=== PATIENT | male | born 1955 | race American Indian/Alaskan Native ===

== ENCOUNTER 2016-06-21 19:25 | Inpatient (IN) | payer OTHER ==
[2016-06-21] MEDS ORDERED: NACL 0.9% 1000 ML 1,000 ML IV ONE (19:47)
--- NOTE | 2016-06-21 20:15 | Cat Scan Report ---
FINAL REPORT PROCEDURE: CT HEAD/BRAIN WO CON TECHNIQUE: Computerized tomography of the head was performed without contrast material. HISTORY: AMS COMPARISON: No prior studies are available for comparison. FINDINGS: Skull and scalp: Normal. Paranasal sinuses: Moderate mucosal thickening and fluid.. Ventricles and subarachnoid spaces: Normal. Cerebrum: No evidence of hemorrhage, acute infarction or mass. Basal ganglia calcifications. Cerebellum and brainstem: No evidence of hemorrhage, acute infarction or mass. Vasculature: Normal. Comments: None. IMPRESSION: No acute intracranial abnormality.
[2016-06-21 20:38] LABS: Basophils % (Auto) 0.4 % (0.0-1.8); Eosinophils % (Auto) 2.4 % (0.0-4.3); Hematocrit 48.9 % (35.5-45.6); Hemoglobin 16.1 gm/dl (11.8-15.2); Mean Corpuscular HGB Conc 33 % (32-34); Mean Corpuscular Hemoglobin 30 pg (28-32); Mean Corpuscular Volume 90 fl (84-94); Platelet Count 223 K/mm3 (140-440); Red Blood Count 5.44 M/mm3 (3.65-5.03); Red Cell Distribution Width 12.8 % (13.2-15.2)
[2016-06-21 20:48] LABS: Partial Thromboplastin Time 29.8 Sec. (24.2-36.6)
--- NOTE | 2016-06-21 21:02 | Admit Criteria Form ---
<GABRIELLA KENDRICK - Last Filed: 06/21/16 21:02> Admission Criteria Documentation: MENTAL STATUS CHANGE Clinical Indications for Inpatient Care (Place 'X' for any and all applicable criteria): Ongoing inpatient care may be needed for 1 or more of the following(1)(2)(3)(5)( 6): [ ]I. Suspected serious etiology (eg, medical disorder, [employer] event) of altered mental status [ ]II. Danger to self or others not manageable at lower level of care [ ]III. Grave disability (eg, inability to perform self care necessary at lower level of care) [ ]IV. Agitation or inappropriate behavior interfering with care for primary condition (eg, attempting to discontinue lines or drains prematurely, unable to cooperate with respiratory care) [ ]V. Delirium [A] [D][E] as described by 1 or more of the following(26): [ ]a) Delirium due to alcohol or sedative [F] withdrawal [ ]b) Delirium of uncertain etiology that has not responded to appropriate empiric treatment [ ]c) Delirium that prevents performance of a life-sustaining function (eg, feeding or hydrating oneself) [X ]. General contraindications and/or Inappropriate clinical situations for Observational Care in patients with Mental Status Change, when ANY ONE of the following is required: [ X]a) Prediction of prolongation of LOS based on ANY ONE of the following may be considered as a contraindication for observational care 2, 3, 4, 5, 6, 7, 8, 9, 10, 11 [ ]i) Age > 65 yrs. [X]ii) Patient arriving by ambulance [ ]iii) Patient with high acuity [ ]iv) Patient requiring vital sign monitoring [ ]v) Patient on IV medication [ ]b) Systolic blood pressures greater than or equal to 180mmHg 3, 12 [ ]c) Patient with altered mental status including delirium and other alteration of consciousness, (3) [ ]d) Patient whose discharge disposition will be to a assisted home or rehabilitation home should not be managed in Emergency Department Observation Unit. CMS rule requires 3 days hospital stay before such placement.3,13 [ ]e) Patient with failure to thrive due to broad array of etiologies 3,16,17 [ ]f) Inability to ambulate 3,14 Extended stay beyond goal length of stay for the primary condition may be needed until ALL of the following are present(3)(5): [ ]a) Underlying medical etiology of mental status change is absent, or has been established and adequately treated [ ]b) Danger to self or others is absent or manageable at lower level of care. [ ]c) Behavior crisis management, including physical or chemical restraints, is not required or available at lower level of car [ ]d) Substance or alcohol withdrawal is absent or manageable at lower level of care. [ ]e) Behavioral symptoms (eg, agitation, somnolence, inappropriate behavior) are absent, or are manageable at lower level of care. The original [facility] content created by [employer] has been revised. The portions of the content which have been revised are identified through the use of italic text or in bold, and [facility] has neither reviewed nor approved the modified material. All other unmodified content is copyright [facility] [employer]. Please see references footnoted in the original [facility] [employer] edition 2016 Admission Criteria Met: Pending <RANJAN PARMAR - Last Filed: 06/21/16 21:23> Admission Criteria Met: Yes
[2016-06-21 21:03] LABS: Alanine Aminotransferase 51 units/L (7-56); Albumin 4.2 g/dL (3.9-5); Albumin/Globulin Ratio 1.3 %; Alkaline Phosphatase 86 units/L (35-129); Anion Gap 16 mmol/L; BUN/Creatinine Ratio 23.75; Bilirubin,Total 0.9 mg/dL (0.1-1.2); Blood Urea Nitrogen 19 mg/dL (9-20); Calcium 9.6 mg/dL (8.4-10.2); Carbon Dioxide 25 mmol/L (22-30); Chloride 102.4 mmol/L (98-107); Creatine Kinase 332 units/L (55-170); Glucose 95 mg/dL (75-100); Potassium 3.4 mmol/L (3.6-5.0); Sodium 140 mmol/L (137-145); Total Protein 7.4 g/dL (6.3-8.2)
[2016-06-21] MEDS ORDERED: APRESOLINE IV ONE (21:28)
--- NOTE | 2016-06-21 21:28 | Emergency Department Report ---
ED Dizziness HPI - General Chief Complaint: Altered Mental Status Stated Complaint: SYNCOPE Time Seen by Provider: 06/21/16 19:35 Source: patient, EMS Mode of arrival: Stretcher Limitations: Altered Mental Status - History of Present Illness MD Complaint: dizziness, lightheadedness, near syncope -: Sudden Timing: sudden onset Description: lightheadedness, near-syncope, other (able to speak but repeating sentences) History of Same: No History of Trauma: No Severity: moderate Improves With: nothing Worsens With: nothing Associated Symptoms: confusion. denies: ataxia, chest pain, cough, diaphoresis , fever/chills, loss of appetite, malaise, rash, syncope, weakness, other - Related Data Allergies Allergy/AdvReac Type Severity Reaction Status Date / Time No Known Allergies Allergy Unverified 06/21/16 19:43 ED Review of Systems ROS: Stated complaint: SYNCOPE Other details as noted in HPI Constitutional: denies: chills, fever Eyes: denies: eye pain, eye discharge, vision change ENT: denies: ear pain, throat pain Respiratory: denies: cough, shortness of breath, wheezing Cardiovascular: denies: chest pain, palpitations Endocrine: no symptoms reported Gastrointestinal: denies: abdominal pain, nausea, diarrhea Genitourinary: denies: urgency, dysuria Musculoskeletal: denies: back pain, joint swelling, arthralgia Skin: denies: rash, lesions Neurological: denies: headache, weakness, paresthesias Psychiatric: denies: anxiety, depression Hematological/Lymphatic: denies: easy bleeding, easy bruising ED Past Medical Hx - Past Medical History Hx Hypertension: Yes - Surgical History Past Surgical History?: No - Social History Smoking Status: Never Smoker Substance Use Type: None ED Physical Exam - General Limitations: Altered Mental Status General appearance: in no apparent distress, anxious - Head Head exam: Present: atraumatic, normocephalic - Eye Eye exam: Present: normal appearance, PERRL - ENT ENT exam: Present: normal exam - Neck Neck exam: Present: normal inspection, tenderness - Respiratory Respiratory exam: Present: normal lung sounds bilaterally - Cardiovascular Cardiovascular Exam: Present: regular rate, normal rhythm - GI/Abdominal GI/Abdominal exam: Absent: distended, tenderness, guarding - Extremities Exam Extremities exam: Present: normal inspection - Back Exam Back exam: Present: normal inspection, full ROM - Neurological Exam Neurological exam: Present: alert, altered, reflexes normal. Absent: normal gait, motor sensory deficit - Psychiatric Psychiatric exam: Present: flat affect - Skin Skin exam: Present: warm, dry ED Course Vital Signs 06/21/16 06/21/16 06/21/16 19:36 20:08 20:10 Temperature 97.5 F L Pulse Rate 64 59 L 67 Respiratory 22 21 20 Rate Blood Pressure 194/117 O2 Sat by Pulse 95 95 96 Oximetry 06/21/16 06/21/16 20:20 20:29 Temperature Pulse Rate 61 Respiratory 20 Rate Blood Pressure 199/100 O2 Sat by Pulse 98 98 Oximetry ED Medical Decision Making - Lab Data Result diagrams: 06/21/16 20:09 06/21/16 20:09 - EKG Data -: EKG Interpreted by Me EKG shows normal: sinus rhythm Rate: normal - EKG Data When compared to previous EKG there are: previous EKG unavailable Interpretation: no acute changes - Radiology Data Radiology results: report reviewed, image reviewed - Medical Decision Making Patient with minimal improvement in the ER. labs negative, EKG negative, head CT negative , but still confused and repeating questions , able to recognize family and at times able to respond properly to simple questions, will admit for further workup, MRI of head and neck and further lab testing. Have not treated his BP, cause it has come down on its own. Spoke to hospitalist and agree with admission. Critical Care Time: Yes Critical care time in (mins) excluding proc time.: 35 Critical care attestation.: If time is entered above; I have spent that time in minutes in the direct care of this critically ill patient, excluding procedure time. ED Disposition Clinical Impression: Aphasia Disposition: OP ADMITTED IP TO THIS HOSP Is pt being admited?: Yes Does the pt Need Aspirin: No Condition: Fair Referrals: PRIMARY CARE, [Primary Care Provider] - 3-5 Days Time of Disposition: 21:29
[2016-06-21] MEDS ORDERED: ASPIRIN PO ONE (21:29)
[2016-06-21] MEDS ORDERED: K-DUR PO ONE ×2 (22:08→22:44)
[2016-06-21] MEDS ORDERED: TYLENOL PO PRN (22:25)
[2016-06-21] MEDS ORDERED: ZOFRAN IV PRN (22:25)
[2016-06-21] MEDS ORDERED: NACL 0.9% 1000 ML 1,000 ML IV SCH (23:00)
[2016-06-21 23:10] LABS: Urine Drugs of Abuse Note Disclamer
[2016-06-21 23:23] LABS: Bilirubin,Urine NEG (Negative); Blood,Urine NEG (Negative); Ketones,Urine NEG (Negative); Leukocyte Esterase,Urine NEG (Negative); Mucus,Urine FEW /HPF; Nitrite,Urine NEG (Negative); Protein,Urine <15 mg/dL mg/dL (Negative); RBC,Urine < 1.0 /HPF (0.0-6.0); Urobilinogen,Urine < 2.0 mg/dL (<2.0)
--- NOTE | 2016-06-21 23:25 | History and Physical Report ---
CHIEF COMPLAINT: Change in mental status. HISTORY OF PRESENT ILLNESS: The patient is a 60-year-old male noted to have change in mental status that started initially with the patient complaining of dizziness and feeling like he was going to pass out. Family stated they saw him and then the patient became confused, was unable to communicate effectively and kept repeating himself. Denied history of chest pain. Denied history of shortness of breath, fever or chills, nausea or vomiting. The patient was found by family to be confused with occasional tears coming out both eyes. He has no history of chest pain. PAST MEDICAL HISTORY: Pertinent for hypertension with noncompliance. FAMILY HISTORY: Noncontributory. SOCIAL HISTORY: The patient does not smoke, does not drink alcohol, and does not use illicit drugs. MEDICATIONS: The patient's home medications are not known. ALLERGIES: There are no known drug allergies. REVIEW OF SYSTEMS: CONSTITUTIONAL: There is no fever, no chills, no diaphoresis. HEENT: There is no headache or sore throat. CARDIOVASCULAR SYSTEM: There is no chest pain or orthopnea. RESPIRATORY SYSTEM: There is no shortness of breath or cough. GASTROINTESTINAL SYSTEM: There is no nausea, no vomiting, no abdominal pain, diarrhea, or constipation. NEUROLOGICAL SYSTEM: Altered mental status with confusion noted. Speech impairment noted and dizziness noted. MUSCULOSKELETAL SYSTEM: There is no joint pain or swelling. DERMATOLOGICAL SYSTEM: There is no skin rash or itching. GENITOURINARY: There is no dysuria, hematuria, or flank pain. Rest of system review is normal. PHYSICAL EXAMINATION: GENERAL: At the time of exam, the patient was found to be alert, oriented to person only, confused and not in acute distress. VITAL SIGNS: Shows normal temperature with initial pulse of 61, respirations 12, blood pressure initially was 196/103, but the last blood pressure as of 21:45 was 187/98 with O2 sat of 99% on room air. HEENT: Showed pupils to be equal, round, reactive to light and accommodation. Extraocular muscles are intact. NECK: Supple with no JVD or carotid bruit. CARDIOVASCULAR: Showed normal first and second heart sounds with no gallops or murmur. RESPIRATORY: Showed good air entry on both sides of the lung with no abnormal breath sounds. GASTROINTESTINAL: Showed abdomen to be full, soft, nontender with no organomegaly or rigidity. NEUROLOGIC: Showed the patient to be confused with no focal neurological deficits. MUSCULOSKELETAL: Showed no joint swelling or tenderness. DERMATOLOGICAL: Showed no skin rash. GENITOURINARY: Showing no costovertebral angle tenderness. PERTINENT LABORATORY AND IMAGING STUDIES: The patient has CBC done with normal white count, elevated hemoglobin of 16.1 with elevated hematocrit of 48.9 and normal MCV. CBC differential was unremarkable. Chemistry shows slight decrease in potassium of 3.4, and lactic acid level was elevated with a value of 2.8. The patient's total creatinine kinase was high with a value of 332 with normal troponin level. Toxicology showed unremarkable Salicylate, acetaminophen, and alcohol level. IMAGING STUDIES: The patient had a CT of the head done that shows no acute intracranial pathology. DIAGNOSES: 1. Altered mental status. 2. Speech impairment or dysarthria. PLAN: The patient will be admitted to medical floor and we will have MRI of the brain without contrast in the morning. The patient will also have carotid Doppler bilaterally done in the morning and we will have 2D echo done also in the morning. The patient will have cardiac enzymes involving troponin, total CK and CK-MB checked q.6h. x 2 more levels and will have basic metabolic panel done in the morning as well as complete blood count checked in the morning. The patient will be on IV normal saline at 75 mL an hour, will be on enteric coated aspirin 325 mg by mouth daily. The patient will be on Tylenol 650 mg q.4h. for fever and headache and will have IV Zofran 4 mg q.6h. for nausea and vomiting. The patient will have speech therapy consult to evaluate and treat in the morning and will have Neurology consult with Dr. Jaquan Ventura in the morning. The patient will be placed on hydrochlorothiazide 12.5 mg 1 by mouth daily for blood pressure treatment and will be on sequential compressive device for DVT prophylaxis. The patient will be on potassium chloride 40 mEq by mouth one-time dose only. The patient will be on oxygen by nasal cannula 2 liters per minute. JOB# [id number] OCN/NTS CATAD
[2016-06-22 01:38] LABS: Creatine Kinase MB 2.7 ng/mL (0.0-4.0)
[2016-06-22 01:40] LABS: Creatine Kinase 282 units/L (55-170)
[2016-06-22 05:45] LABS: Hematocrit 46.3 % (35.5-45.6); Hemoglobin 15.3 gm/dl (11.8-15.2); Mean Corpuscular HGB Conc 33 % (32-34); Mean Corpuscular Hemoglobin 30 pg (28-32); Mean Corpuscular Volume 90 fl (84-94); Platelet Count 203 K/mm3 (140-440); Red Blood Count 5.12 M/mm3 (3.65-5.03); Red Cell Distribution Width 12.7 % (13.2-15.2); White Blood Count 12.9 K/mm3 (4.5-11.0)
[2016-06-22 06:06] LABS: Anion Gap 18 mmol/L; Blood Urea Nitrogen 15 mg/dL (9-20); Calcium 8.9 mg/dL (8.4-10.2); Carbon Dioxide 21 mmol/L (22-30); Chloride 105.8 mmol/L (98-107); Glucose 100 mg/dL (75-100); Potassium 3.9 mmol/L (3.6-5.0); Sodium 141 mmol/L (137-145)
[2016-06-22 06:09] LABS: Creatine Kinase MB 2.5 ng/mL (0.0-4.0)
[2016-06-22 06:11] LABS: Creatine Kinase 240 units/L (55-170)
[2016-06-22 08:44] VITALS: BP 167/91
--- NOTE | 2016-06-22 08:50 | XRay Report ---
AP CHEST: HISTORY: Altered mental status AP view of the chest demonstrates a normal mediastinal and cardiac contour with clear lungs and normal bony and soft tissue structures. IMPRESSION: Unremarkable AP chest.
[2016-06-22] MEDS ORDERED: HCTZ PO SCH (10:00)
[2016-06-22] MEDS ORDERED: ECOTRIN PO SCH (10:00)
--- NOTE | 2016-06-22 10:24 | Consultation ---
History of Present Illness Consult date: 06/22/16 Requesting physician: [facility] Reason for Consult: AMS + dysarthria Chief complaint: confusion and headache History of present illness: 60 YO M p/w vague constellation of sx including confusion and slowed speech as well as slowed general movements. sx began 06/21 @ 6 PM and have persisted waxing and waning but apparently improved through the night. There are no clear aggravating, relieving or temporal factors. Severity was enough to cause family concern as he was repeating questions but able to recognize family and at times able to respond properly to simple questions. There was no clear premonitory exertion activity. There was also no lateralized sx/complaints.. Past History Past Medical History: hypertension Past Surgical History: No surgical history Social history: , lives with family. denies: alcohol abuse, prescription drug abuse, IV drug use Family history: hypertension Medications and Allergies Allergies Allergy/AdvReac Type Severity Reaction Status Date / Time No Known Allergies Allergy Verified 06/21/16 22:17 Home Medications Medication Instructions Recorded Confirmed Last Taken Type Unobtainable 06/21/16 06/21/16 Unknown History Active Meds: Active Medications Acetaminophen (Tylenol) 650 mg PO Q4H PRN PRN Reason: For Pain/Fever/Headache Aspirin (Ecotrin) 325 mg PO DAILY RENETTA Hydrochlorothiazide (Hctz) 12.5 mg PO DAILY RENETTA Ondansetron HCl (Zofran) 4 mg IV Q6H PRN PRN Reason: Nausea And Vomiting Review of Systems Constitutional: fatigue, weakness, malaise Neurological: weakness, headaches, change in speech, change in mentation, confusion, memory loss, motor disturbance (slowed), no paralysis, no parathesias , no numbness, no tingling, no seizures, no syncope, no balance difficulties, no gait dysfunction, no sensory deficit, no double vision, no loss of vision Physical Examination - Vital Signs Vital Signs: Vital Signs Temp Pulse Resp BP Pulse Ox 97.5 F L 64 22 194/117 95 06/21/16 19:36 06/21/16 19:36 06/21/16 19:36 06/21/16 19:36 06/21/16 19:36 - Constitutional General appearance: comfortable - EENT EENT: Present: ATNC, PERRL, mucous membranes moist, hearing intact, vision intact - Respiratory Respiratory: Present: chest non-tender, normal breath sounds, no respiratory distress - Cardiovascular Cardiovascular: Present: regular rate Extremities: Present: no peripheral edema bilatateraly, no clubbing, cyanosis, no inflammation, no ischemia or petechiae - Gastrointestinal Gastrointestinal: Present: normoactive bowel sounds, soft, non-distended - Integumentary Integumentary: Present: normal - Neurologic Cranial nerve examination: PERRL, EOMI, VFF, V1/V2/V3 grossly intact, face symmetric, tongue midline, intact, intact shoulder shrug, intact cough reflex, Intact Vestibulo-ocular r, intact corneal reflex, normal palatal elevation Speech examination: intact, other (slowed speech but no aphasia/dysarthria) Sensorimotor examination: intact Detailed motor examination: full strength in all kamila Motor examination - right side: 5/5: biceps, triceps, wrist flexion, wrist extension, watch dial printer, hip flexors, knee extensors, dorsiflexion, toe extension (EHL) , plantarflexion Motor examination - left side: 5/5: biceps, triceps, wrist flexion, wrist extension, watch dial printer, hip flexors, knee extensors, dorsiflexion, toe extension (EHL) , plantarflexion Detailed sensory examination: intact, light touch, temperature Reflex and gait examination: intact Reflexes: 1+: ankle, 2+: bicep, knee, tricep - Musculoskeletal Musculoskeletal: Present: no fluid collection, no pain, normal range of motion - Psychiatric Psychiatric: Present: cooperative, other (tearful, anxious) Results - Laboratory Findings CBC and BMP: 06/22/16 05:18 06/22/16 05:18 Abnormal Lab Findings: Abnormal Labs 06/22/16 06/22/16 06/22/16 00:55 05:18 05:18 WBC RBC Hgb Hct RDW Carbon Dioxide 21 L Creatinine 0.6 L Total Creatine Kinase 282 H 240 H 06/22/16 05:18 WBC 12.9 H RBC 5.12 H Hgb 15.3 H Hct 46.3 H RDW 12.7 L Carbon Dioxide Creatinine Total Creatine Kinase Assessment and Plan 60 YO M Hx HTN p/w vague constellation of sx including confusion, slowed not slurred) speech and diffuse motor activity and FRIED. Neuro exam w/ poor concentration and recall but otherwise no focal deficits. Pt was anxious and tearful during exam raising concern for psych ailment rather than neurologic syndrome although cannot rule out toxic metabolic encephalopathy as +THC but will r/o structural pathology. CTH neg. TSH/NH4 neg. Plan and Recommendation: 1. No indication for pharmacologic thrombolysis with IV tPA or mechanical thrombectomy due to last known normal > 6 hrs from presentation. Current NIHSS 0. 2. Telemetry bed w/ Q4 hour neuro checks 3. Brain imaging: MRI Brain w/o Mervin Stroke Protocol 4. Cont Infectious work up/medical management for UTI, PNA, cellulitis, bacteremia, etc. 5. Avoid hyponatremia, hypo/hyper-calcemia, hypo/hyperglycemia, acidosis, hypoxia/hypoxemia, hypercarbia/hypercapnia 6. Avoid institution of any psychoactive medications (e.g. antihistamines, anticholinergics, BZD, hypnotics, opiates) as able unless low doses of low potency antipsychotic needed for behavioral issues complicating medical care 7. Thiamine/Folate/CIWA protocol accordingly for EtOH withdrawal 8. If MRI Brain reveals infarct: A. Vascular Imaging: MRA Head w/o Mervin & MRA Neck w/ Mervin Stroke Protocol OR CTA Head/Neck w/ Contrast OR Bilateral Carotid Duplex U/S B. TTE to eval for possible cardiac source of embolism C. Serum Labs: HgA1c, LDL 9. Permissive HTN for first 24-48 hours: HOB < 30 degrees, isotonic IVF prn and refrain from active Tx of HTN unless BP > 185/105 or pt develops malignant HTN. Can lower MAPs by 10-15% daily to reach goal SBP 120-160 after permissive HTN period or if MRI neg for infarction. 10. Secondary stroke prevention: ASA 325mg Daily x 1 then 81mg QDay & upgrade to full dose statin therapy (Crestor 20mg or 40mg OR Lipitor 40mg or 80mg Daily OR Zocor 40mg QDay) for goal LDL < 70. If MRI neg for infarct there is no neurologic indication for ASA/statin. 11. F/E/N: isotonic IVF prn, prn replete, oral diet as pt passed bedside speech /swallow eval 12. DVT Prophylaxis 13. Stroke education, PT/OT/Speech Therapy consults, CM evaluation 14. For any changes in neurologic status, pls obtain STAT CTH w/o contrast and call neurology 15. If MRI negative and pt clinically improves, likely no neurologic contraindication for discharge over weekend. Mental health may need to be involved depending on above results.
--- NOTE | 2016-06-22 11:05 | Progress Note ---
Assessment and Plan Assessment and plan: Patient is a 60-year-old man with a history of hypertension but he has not been on blood pressure medication for some time. He goes to [facility]. He presented with altered mental status and slow slow speech. UDS positive for marijuana. CT head unremarkable. Patient denies any alcohol or tobacco abuse. His last alcoholic drink was wine 1 month ago. This was verified by at bedside. Patient denies any suicidal ideation. Patient was found to have blood pressure is 194/117 on admission. -Acute encephalopathy, resolved -Accelerated hypertension -Noncompliance -Dysarthria resolved If MRI is negative he can be discharge. History Interval history: Patient seen and examined. Follow up on altered mental status which has resolved. Overnight uneventful. No cp, sob, n/v or severe headaches. Imaging, old records, testing, labs, nursing notes reviewed. Plan discussed with patient. Hospitalist Physical - Physical exam Narrative exam: GEN: WDWN, NAD, AWAKE, ALERT, ORIENTATED 3, at bedside HEENT: NCAT, PERRL, EOMI, OP CLEAR NECK: SUPPLE, NO THYROMEGALY, NO JVD, NO LAD CVS: RRR, NORMAL S1S2 LUNGS/CHEST: CTA B, NORMAL CHEST EXPANSION B, GOOD AIR ENTRY B ABD: SOFT NTND, GBS, NO REBOUND OR GUARDING EXT/SKIN: NO SIGNIFICANT EDEMA OR RASH MSK: FROM X 4 EXTREMITIES NEURO: CN 2-12 GROSSLY INTACT, NO new FOCAL DEFICITS PSY: CALM - Constitutional Vitals: Temp Pulse Resp BP Pulse Ox 97.3 F L 55 L 18 167/91 100 06/22/16 08:43 06/22/16 08:43 06/22/16 08:43 06/22/16 08:43 06/22/16 08:43 Results - Labs CBC & Chem 7: 06/22/16 05:18 06/22/16 05:18 Labs: Laboratory Last Values WBC 12.9 K/mm3 (4.5-11.0) H 06/22/16 05:18 RBC 5.12 M/mm3 (3.65-5.03) H 06/22/16 05:18 Hgb 15.3 gm/dl (11.8-15.2) H 06/22/16 05:18 Hct 46.3 % (35.5-45.6) H 06/22/16 05:18 MCV 90 fl (84-94) 06/22/16 05:18 MCH 30 pg (28-32) 06/22/16 05:18 MCHC 33 % (32-34) 06/22/16 05:18 RDW 12.7 % (13.2-15.2) L 06/22/16 05:18 Plt Count 203 K/mm3 (140-440) 06/22/16 05:18 Lymph % (Auto) 24.2 % (13.4-35.0) 06/21/16 20:09 Mckinley % (Auto) 8.5 % (0.0-7.3) H 06/21/16 20:09 Eos % (Auto) 2.4 % (0.0-4.3) 06/21/16 20:09 Baso % (Auto) 0.4 % (0.0-1.8) 06/21/16 20:09 Lymph # 2.7 K/mm3 (1.2-5.4) 06/21/16 20:09 Mckinley # 0.9 K/mm3 (0.0-0.8) H 06/21/16 20:09 Eos # 0.3 K/mm3 (0.0-0.4) 06/21/16 20:09 Baso # 0.0 K/mm3 (0.0-0.1) 06/21/16 20:09 Seg Neutrophils % 64.5 % (40.0-70.0) 06/21/16 20:09 Seg Neutrophils # 7.1 K/mm3 (1.8-7.7) 06/21/16 20:09 PT 13.1 Sec. (12.2-14.9) 06/21/16 20:09 INR 1.00 (0.87-1.13) 06/21/16 20:09 APTT 29.8 Sec. (24.2-36.6) 06/21/16 20:09 Sodium 141 mmol/L (137-145) 06/22/16 05:18 Potassium 3.9 mmol/L (3.6-5.0) 06/22/16 05:18 Chloride 105.8 mmol/L (98-107) 06/22/16 05:18 Carbon Dioxide 21 mmol/L (22-30) L 06/22/16 05:18 Anion Gap 18 mmol/L 06/22/16 05:18 BUN 15 mg/dL (9-20) 06/22/16 05:18 Creatinine 0.6 mg/dL (0.8-1.5) L 06/22/16 05:18 Estimated GFR > 60 ml/min 06/22/16 05:18 BUN/Creatinine Ratio 25.00 % 06/22/16 05:18 Glucose 100 mg/dL (75-100) 06/22/16 05:18 Lactic Acid 2.8 mmol/L (0.7-2.0) H* 06/21/16 20:09 Calcium 8.9 mg/dL (8.4-10.2) 06/22/16 05:18 Total Bilirubin 0.9 mg/dL (0.1-1.2) 06/21/16 20:09 AST 30 units/L (5-40) 06/21/16 20:09 ALT 51 units/L (7-56) 06/21/16 20:09 Alkaline Phosphatase 86 units/L (35-129) 06/21/16 20:09 Ammonia 59.0 umol/L (25-60) 06/21/16 20:09 Total Creatine Kinase 240 units/L (55-170) H 06/22/16 05:18 CK-MB (CK-2) 2.5 ng/mL (0.0-4.0) 06/22/16 05:18 CK-MB (CK-2) Rel Index 1.0 (0-4) 06/22/16 05:18 Troponin T < 0.010 ng/mL (0.00-0.029) 06/22/16 05:18 Total Protein 7.4 g/dL (6.3-8.2) 06/21/16 20:09 Albumin 4.2 g/dL (3.9-5) 06/21/16 20:09 Albumin/Globulin Ratio 1.3 % 06/21/16 20:09 TSH 1.810 mlU/mL (0.270-4.200) 06/21/16 20:09 Urine Color Yellow (Yellow) 06/21/16 22:57 Urine Turbidity Clear (Clear) 06/21/16 22:57 Urine pH 7.0 (5.0-7.0) 06/21/16 22:57 Ur Specific [place] 1.015 (1.003-1.030) 06/21/16 22:57 Urine Protein <15 mg/dl mg/dL (Negative) 06/21/16 22:57 Urine Glucose (UA) Neg mg/dL (Negative) 06/21/16 22:57 Urine Ketones Neg mg/dL (Negative) 06/21/16 22:57 Urine Blood Neg (Negative) 06/21/16 22:57 Urine Nitrite Neg (Negative) 06/21/16 22:57 Urine Bilirubin Neg (Negative) 06/21/16 22:57 Urine Urobilinogen < 2.0 mg/dL (<2.0) 06/21/16 22:57 Ur Leukocyte Esterase Neg (Negative) 06/21/16 22:57 Urine WBC (Auto) 1.0 /HPF (0.0-6.0) 06/21/16 22:57 Urine RBC (Auto) < 1.0 /HPF (0.0-6.0) 06/21/16 22:57 Urine Mucus Few /HPF 06/21/16 22:57 Salicylates < 0.3 mg/dL (2.8-20.0) L 06/21/16 20:09 Urine Opiates Screen Presumptive negative 06/21/16 22:57 Urine Methadone Screen Presumptive negative 06/21/16 22:57 Acetaminophen < 15.0 ug/mL (10.0-30.0) 06/21/16 20:09 Ur Barbiturates Screen Presumptive negative 06/21/16 22:57 Ur Phencyclidine Scrn Presumptive negative 06/21/16 22:57 Ur Amphetamines Screen Presumptive negative 06/21/16 22:57 U Benzodiazepines Scrn Presumptive negative 06/21/16 22:57 Urine Cocaine Screen Presumptive negative 06/21/16 22:57 U Marijuana (THC) Screen Presumptive positive 06/21/16 22:57 Drugs of Abuse Note Disclamer 06/21/16 22:57 Plasma/Serum Alcohol < 0.01 gm% (0-0.07) 06/21/16 20:09
--- NOTE | 2016-06-22 11:08 | Discharge Summary ---
Providers - Providers Date of Admission: 06/21/16 21:57 Date of discharge: 06/22/16 Attending physician: KAMILA LONG 06/22/16 06:05 Speech Therapy Evaluation and Treat [CONS] Routine Reason For Exam: DYSARTHRIA 06/22/16 06:06 Consult to Physician [CONS] Routine Consulting Provider: KRISHNA BLAND Reason For Exam: ALTERED MENTAL STATUS WITH DYSARTHRIA Place consult to:: KRISHNA BLAND Notified:: BALDO Phone number called:: [phone] 06/22/16 08:42 Physical Therapy Evaluation and Treat [CONS] Routine Comment: CVA Reason For Exam: SKILL LEVEL Primary care physician: [employer] Hospitalization Condition: Stable Hospital course: Patient is a 60-year-old man with a history of hypertension but he has not been on blood pressure medication for some time. He goes to [facility]. He presented with altered mental status and slow slow speech. UDS positive for marijuana. CT head unremarkable. Patient denies any alcohol or tobacco abuse. His last alcoholic drink was wine 1 month ago. This was verified by at bedside. Patient denies any suicidal ideation. Patient was found to have blood pressure is 194/117 on admission. -Acute encephalopathy, resolved -Accelerated hypertension -Noncompliance -Dysarthria resolved, suspect TIA vs depression If MRI is negative he can be discharge. Disposition: DISCHARGED TO HOME OR SELFCARE Core Measure Documentation - Palliative Care Palliative Care/ Comfort Measures: Not Applicable - Core Measures Any of the following diagnoses?: none - VTE Discharge Requirements Deep Vein Thrombosis/Pulmonary Embolism Present on Admission: No Has pt received <5 days of overlap therapy or INR<2.0: No Anticoagulant overlap therapy prescribed at discharge: No Contraindication No Overlap Therapy order at DC: Not Indicated Exam - Physical Exam Narrative exam: GEN: WDWN, NAD, AWAKE, ALERT, ORIENTATED 3, at bedside HEENT: NCAT, PERRL, EOMI, OP CLEAR NECK: SUPPLE, NO THYROMEGALY, NO JVD, NO LAD CVS: RRR, NORMAL S1S2 LUNGS/CHEST: CTA B, NORMAL CHEST EXPANSION B, GOOD AIR ENTRY B ABD: SOFT NTND, GBS, NO REBOUND OR GUARDING EXT/SKIN: NO SIGNIFICANT EDEMA OR RASH MSK: FROM X 4 EXTREMITIES NEURO: CN 2-12 GROSSLY INTACT, NO new FOCAL DEFICITS PSY: CALM - Constitutional Vitals: Temp Pulse Resp BP Pulse Ox 97.3 F L 55 L 18 167/91 100 06/22/16 08:43 06/22/16 08:43 06/22/16 08:43 06/22/16 08:43 06/22/16 08:43 Plan Activity: no driving until cleared by PCP, other (no strenous activites until cleared by PCP. ) Diet: low salt Special Instructions: record daily BP diary Additional Instructions: See the psychiatrist Dr. Israel to screen for depression Follow up with: PRIMARY MD GLORIA [Primary Care Provider] - 3-5 Days HENRIQUE ISRAEL MD [Referring] - 7 Days Prescriptions: AtorvaSTATin [Lipitor] 40 mg PO HS #30 tablet Hydrochlorothiazide [HCTZ] 12.5 mg PO DAILY #30 capsule
--- NOTE | 2016-06-22 13:53 | Magnetic Resonance Report ---
MR brain: History: Altered mental status. Technique: Multiplanar, multisequence images were obtained without contrast injection. Findings: No evidence of restricted diffusion. Ventricles are normal in size and midline in location. No evidence of acute ischemia, hemorrhage or mass. No extra-axial fluid collection. Normal brainstem and cerebellum. Mucosal edema of the maxillary sinuses. Normal mastoid air cells. Impression: No acute intracranial abnormality. Sinus disease.
--- NOTE | 2016-06-26 09:35 | Vascular Lab Report ---
CAROTID DUPLEX STUDY: RIGHT PSVEDV CCA PROX:[id number] CCA DIST: 5514 ICA PROX: 5523 ICA MID: 8429 ICA DIST: 5518 ECA: 84 VERT: 36 11 LEFT PSVEDV CCA PROX:[id number] CCA DIST: 6914 ICA PROX: 9011 ICA MID: 7730 ICA DIST: 7226 ECA: 107 VERT: 56 12 REASON FOR EXAM: Acute mental status change/dysarthria. COMMENTS ON THE RIGHT: Doppler frequency analysis is consistent with 16 to 49 percent diameter reduction of the internal carotid artery. Minimal amount of plaque is seen. The common carotid artery is patent. The external carotid artery is patent. The vertebral artery has antegrade flow. COMMENTS ON THE LEFT: Doppler frequency analysis is consistent with 16 to 49 percent diameter reduction of the internal carotid artery. Minimal amount of plaque is seen. The common carotid artery is patent. The external carotid artery is patent. The vertebral artery has antegrade flow. IMPRESSION: Less than 50% diameter reduction in the internal carotid arteries bilaterally. Consider repeat carotid artery duplex in 12 months.
== END 2016-06-22 17:47 | disposition home or self-care (01) | DRG 69 ==
LOC: ED 19:25 → 4A 21:57
PROVIDERS: ADMIT Internal Medicine; ATTEND Internal Medicine
DX: G45.9 Transient cerebral ischemic attack, unspecified (principal); G93.40 Encephalopathy, unspecified; I10 Essential (primary) hypertension; F32.9 Major depressive disorder, single episode, unspecified; F12.10 Cannabis abuse, uncomplicated; Z91.14 Patient's other noncompliance with medication regimen; Z82.49 Family history of ischemic heart disease and other diseases of the circulatory system; Z79.82 Long term (current) use of aspirin
CPT/HCPCS: 36415; 70450; 70551; 71010; 80048; 80053; 80307; 80320; 81001; 82140; 82550; 82553; 84443; 84484; 85025; 85027; 85610; 85730; 93005; 93010; 93306; 93880; 96374; G0480; J0360; J7030